=== PATIENT | female | born 1960 | race African-American/Black ===

== ENCOUNTER 2016-10-14 03:09 | Emergency (ER) | payer MEDICAID ==
[~2016-10-14] VITALS: Ht 152.4 cm; Wt 62.6 kg
[2016-10-14 03:35] VITALS: BP 119/75
[2016-10-14 04:13] LABS: Basophils # (auto) 0 uL; Basophils % (auto) 0.3 % (0.0-2.0); CONDITION Y; Eosinophils # (auto) 0.1 uL; Eosinophils % (auto) 1.6 % (0.0-7.0); Hematocrit 45.3 % (36.0-46.0); Hemoglobin 15.3 g/dL (12.2-16.2); Lymphocytes # (auto) 1.3 uL; Lymphocytes % (auto) 14.4 % (10.0-50.0); Mean Corpuscular Hemoglobin 30.1 pg (28.0-32.0); Mean Corpuscular Hgb Conc. 33.7 g/dL (32.0-36.0); Mean Corpuscular Volume 89.5 fL (80.0-100.0); Mean Platelet Volume 8.4 fL (7.4-10.4); Monocytes # (auto) 0.6 uL; Monocytes % (auto) 6.1 % (0.0-12.0); Neutrophils # (auto) 7.1 uL; Neutrophils % (auto) 77.6 % (37.0-80.0); Platelet Count (auto) 172 10^3/uL (140-450); Red Cell Distribution Width 12.2 % (11.6-16.0); White Blood Cell 9.1 10^3/uL (4.4-10.8)
[2016-10-14 04:23] LABS: Anion Gap 7 (5-15); Aspartate Aminotransferase 14 U/L (15-37); BUN/Creatinine Ratio 13.4; Blood Urea Nitrogen 11 mg/dL (7-18); Carbon Dioxide 27 mmol/L (21-32); Chloride 109 mmol/L (98-107); GFR African American 93 mL/min; GFR Non-African American 77 mL/min; Glucose 117 mg/dL (74-106); Potassium 4.1 mmol/L (3.5-5.1); Sodium 143 mmol/L (136-145)
[2016-10-14 04:24] LABS: Albumin 3.9 g/dL (3.4-5.0); Calcium 8.9 mg/dL (8.5-10.1); Magnesium 2.4 mg/dL (1.6-2.6)
[2016-10-14 04:28] LABS: Alkaline Phosphatase 95 U/L (45-117); Bilirubin, Total 0.2 mg/dL (0.2-1.0); Total Protein 7.8 g/dL (6.4-8.2)
== END 2016-10-14 05:28 | disposition left against medical advice (07) ==
LOC: ER 03:15
DX: R42 Dizziness and giddiness (principal); R53.1 Weakness; R11.0 Nausea; Z53.21 Procedure and treatment not carried out due to patient leaving prior to being seen by health care provider
CPT/HCPCS: 36415; 80053; 83735; 84484; 85025

== ENCOUNTER 2017-02-27 10:34 | Emergency (ER) | payer MEDICAID ==
[~2017-02-27] VITALS: Ht 167.6 cm; Wt 65.8 kg
[2017-02-28] MEDS ORDERED: SODIUM CHLORIDE 0.9% 1,000 ML IV ONE (00:45)
[2017-02-28] MEDS ORDERED: NALBUPHINE HCL 10 MG/1ml INJECTION IV ONE (00:45)
[2017-02-28] MEDS ORDERED: cefTRIAXone 1GM/10ml IVPUSH 10 ML IV ONE (00:45)
[2017-02-28] MEDS ORDERED: ONDANSETRON HCL 4 MG/2 ML VIAL IV ONE (00:45)
[2017-02-28 01:45] LABS: Basophils # (auto) 0 uL; Basophils % (auto) 0.4 % (0.0-2.0); Eosinophils # (auto) 0 uL; Eosinophils % (auto) 0.3 % (0.0-7.0); Hematocrit 43.9 % (36.0-46.0); Hemoglobin 14.9 g/dL (12.2-16.2); Lymphocytes # (auto) 1.2 uL; Lymphocytes % (auto) 28.4 % (10.0-50.0); Monocytes # (auto) 0.7 uL; Monocytes % (auto) 17.7 % (0.0-12.0); Neutrophils # (auto) 2.2 uL; Neutrophils % (auto) 53.2 % (37.0-80.0); Nucleated Red Blood Cells % 0.7 %; Platelet Count (auto) 141 10^3/uL (140-450); Red Blood Cells 4.99 10^6/uL (4.0-5.20); Red Cell Distribution Width 12.3 % (11.8-14.3); White Blood Cell 4.2 10^3/uL (4.4-10.8)
[2017-02-28 02:08] LABS: Albumin 3.9 g/dL (3.4-5.0); BUN/Creatinine Ratio 14.1; Calcium 8.9 mg/dL (8.5-10.1); Potassium 3.6 mmol/L (3.5-5.1)
[2017-02-28 03:19] LABS: Bilirubin, Total 0.6 mg/dL (0.2-1.0); Total Protein 8.6 g/dL (6.4-8.2)
[2017-02-28 04:15] VITALS: BP 161/67
== END 2017-02-28 05:13 | disposition home or self-care (01) ==
LOC: ER 10:34 → EDBD 10:34 → ER 02-28 05:13
DX: J06.9 Acute upper respiratory infection, unspecified (principal); E11.9 Type 2 diabetes mellitus without complications; R10.9 Unspecified abdominal pain; R11.2 Nausea with vomiting, unspecified; I10 Essential (primary) hypertension; F17.210 Nicotine dependence, cigarettes, uncomplicated; Z86.73 Personal history of transient ischemic attack (TIA), and cerebral infarction without residual deficits
CPT/HCPCS: 36415; 74176; 80053; 85025; 96361; 96374; 96375; 99285; J2300; J2405; J7030

== ENCOUNTER 2017-10-18 09:41 | Emergency (ER) | payer MEDICAID ==
[~2017-10-18] VITALS: Ht 154.9 cm; Wt 77.1 kg
[2017-10-18 11:09] LABS: Basophils # (auto) 0 uL; Basophils % (auto) 0.1 % (0.0-2.0); Eosinophils # (auto) 0.1 uL; Eosinophils % (auto) 1.6 % (0.0-7.0); Hematocrit 40.7 % (36.0-46.0); Hemoglobin 13.8 g/dL (12.2-16.2); Lymphocytes % (auto) 15.8 % (10.0-50.0); Mean Corpuscular Hemoglobin 29.8 pg (28.0-32.0); Mean Corpuscular Hgb Conc. 33.9 g/dL (32.0-36.0); Mean Corpuscular Volume 87.9 fL (80.0-100.0); Monocytes # (auto) 0.4 uL; Monocytes % (auto) 6.7 % (0.0-12.0); Neutrophils # (auto) 4.9 uL; Neutrophils % (auto) 75.8 % (37.0-80.0); Nucleated Red Blood Cells % 0.1 %; Platelet Count (auto) 150 10^3/uL (140-450); Red Blood Cells 4.63 10^6/uL (4.0-5.20); Red Cell Distribution Width 12.5 % (11.8-14.3); White Blood Cell 6.5 10^3/uL (4.4-10.8)
[2017-10-18 11:29] LABS: Alanine Aminotransferase 24 U/L (13-56); Albumin 3.5 g/dL (3.4-5.0); Alkaline Phosphatase 89 U/L (45-117); Anion Gap 9 (5-15); Aspartate Aminotransferase 12 U/L (15-37); BUN/Creatinine Ratio 7.6; Bilirubin, Total 0.2 mg/dL (0.2-1.0); Blood Urea Nitrogen 6 mg/dL (7-18); Calcium 8.2 mg/dL (8.5-10.1); Carbon Dioxide 23 mmol/L (21-32); Chloride 108 mmol/L (98-107); GFR African American 96 mL/min; GFR Non-African American 80 mL/min; Glucose 131 mg/dL (74-106); Magnesium 2.2 mg/dL (1.6-2.6); Potassium 3.8 mmol/L (3.5-5.1); Sodium 140 mmol/L (136-145); Total Protein 7.6 g/dL (6.4-8.2)
[2017-10-18 14:30] VITALS: BP 156/86
== END 2017-10-18 15:06 | disposition home or self-care (01) ==
LOC: EDBD 09:41 → ER 09:41
DX: G44.209 Tension-type headache, unspecified, not intractable (principal); E11.9 Type 2 diabetes mellitus without complications; K21.9 Gastro-esophageal reflux disease without esophagitis; I10 Essential (primary) hypertension; F17.210 Nicotine dependence, cigarettes, uncomplicated; F12.10 Cannabis abuse, uncomplicated; Z86.73 Personal history of transient ischemic attack (TIA), and cerebral infarction without residual deficits; Z88.0 Allergy status to penicillin
CPT/HCPCS: 36415; 70450; 80053; 83735; 84484; 85025; 93005

== ENCOUNTER → 2019-05-17 | Emergency (ER) | payer MEDICAID ==
[~2019-05-17] VITALS: Ht 152.4 cm; Wt 80.3 kg
[~2019-05-17] MED LIST: InsuLIN REG 1unit/0.01ml Soln (100units/ml) IV ONE; MORPHINE SULFATE 4 MG/ML SYR/VIAL IV ONE; ONDANSETRON HCL 4 MG/2 ML VIAL IV ONE; SODIUM CHLORIDE 0.9% 1,000 ML IV ONE
[2019-05-17 21:04] LABS: Basophils # (auto) 0 10 ^3/uL (0-0.2); Basophils % (auto) 0.2 % (0.0-2.0); Eosinophils # (auto) 0.1 10 ^3/uL (0-0.8); Eosinophils % (auto) 1.5 % (0.0-7.0); Hematocrit 44.6 % (36.0-46.0); Hemoglobin 15.1 g/dL (12.2-16.2); Lymphocytes # (auto) 1.8 10 ^3/uL (0.4-5.4); Mean Corpuscular Hgb Conc. 33.8 g/dL (32.0-36.0); Mean Corpuscular Volume 85.9 fL (80.0-100.0); Monocytes # (auto) 0.6 10 ^3/uL (0-1.3); Neutrophils # (auto) 5.3 10 ^3/uL (1.6-8.6); Neutrophils % (auto) 67.3 % (37.0-80.0); Nucleated Red Blood Cells % 0.1 %; Platelet Count (auto) 198 10^3/uL (140-450); Red Blood Cells 5.19 10^6/uL (4.0-5.20); Red Cell Distribution Width 12.4 % (11.8-14.3); White Blood Cell 7.8 10^3/uL (4.4-10.8)
[2019-05-17 21:21] LABS: Albumin 4.1 g/dL (3.4-5.0); Anion Gap 8 (5-15); Aspartate Aminotransferase 22 U/L (15-37); BUN/Creatinine Ratio 14.9; Blood Urea Nitrogen 14 mg/dL (7-18); Calcium 9.6 mg/dL (8.5-10.1); Carbon Dioxide 27 mmol/L (21-32); Chloride 99 mmol/L (98-107); GFR African American 78 mL/min; GFR Non-African American 65 mL/min; Potassium 4.1 mmol/L (3.5-5.1); Sodium 134 mmol/L (136-145)
[2019-05-17 21:26] LABS: Alanine Aminotransferase 49 U/L (13-56); Alkaline Phosphatase 127 U/L (45-117); Bilirubin, Total 0.5 mg/dL (0.2-1.0); Total Protein 8.7 g/dL (6.4-8.2)
[2019-05-17 21:31] LABS: Glucose 454 mg/dL (74-106)
[2019-05-17 22:40] LABS: Urine Bacteria NONE SEEN /hpf (None Seen); Urine Blood Negative /uL (Negative); Urine Mucus FEW (None Seen); Urine Specific Gravity 1.014 (1.001-1.035); Urine WBC None Seen /hpf (0 - 5)
[2019-05-17 23:13] LABS: Alcohol, Urine < 3.0 mg/dL (0-5); Amphetamine Screen, Urine NEGATIVE (NEGATIVE); Barbiturate Scree,Urine NEGATIVE (NEGATIVE); Benzodiazephine Screen, Urine NEGATIVE (NEGATIVE); Cannabinoid Screen, Urine NEGATIVE (NEGATIVE); Cocaine Screen, Urine NEGATIVE (NEGATIVE); Opiate Scree,Urine NEGATIVE (NEGATIVE); Phencyclidine Screen, Urine NEGATIVE (NEGATIVE)
[2019-05-18 01:00] VITALS: BP 145/75
== END | disposition home or self-care (01) ==
LOC: ER 19:45
DX: S16.1XXA Strain of muscle, fascia and tendon at neck level, initial encounter (principal); E11.65 Type 2 diabetes mellitus with hyperglycemia; R10.9 Unspecified abdominal pain; K21.9 Gastro-esophageal reflux disease without esophagitis; I10 Essential (primary) hypertension; Z88.0 Allergy status to penicillin; Z86.73 Personal history of transient ischemic attack (TIA), and cerebral infarction without residual deficits; X58.XXXA Exposure to other specified factors, initial encounter; Y93.89 Activity, other specified; Y92.89 Other specified places as the place of occurrence of the external cause; Y99.8 Other external cause status
CPT/HCPCS: 36415; 70490; 74176; 80053; 80307; 81001; 82010; 82962; 84484; 85025; 96361; 96374; 96375; 96376; 99285; J1815; J2270; J2405; J7030

== ENCOUNTER 2021-04-14 16:07 | Emergency (ER) | payer MEDICAID ==
[~2021-04-14] VITALS: Ht 152.4 cm; Wt 90.7 kg
[2021-04-14] MEDS ORDERED: MORPHINE SULFATE 4 MG/ML SYR/VIAL IV ONE (16:30)
[2021-04-14] MEDS ORDERED: ONDANSETRON HCL 4 MG/2 ML VIAL IV ONE (16:30)
[2021-04-14 17:45] LABS: Basophils # (auto) 0.2 10 ^3/uL (0-0.2); Basophils % (auto) 3.4 % (0.0-2.0); Eosinophils # (auto) 0.2 10 ^3/uL (0-0.8); Eosinophils % (auto) 3.5 % (0.0-7.0); Hematocrit 42.8 % (36.0-46.0); Hemoglobin 14.3 g/dL (12.2-16.2); Lymphocytes # (auto) 1.2 10 ^3/uL (0.4-5.4); Lymphocytes % (auto) 19.1 % (10.0-50.0); Mean Corpuscular Hemoglobin 28.7 pg (28.0-32.0); Mean Corpuscular Hgb Conc. 33.6 g/dL (32.0-36.0); Mean Corpuscular Volume 85.4 fL (80.0-100.0); Monocytes # (auto) 0.4 10 ^3/uL (0-1.3); Monocytes % (auto) 5.5 % (0.0-12.0); Neutrophils # (auto) 4.5 10 ^3/uL (1.6-8.6); Neutrophils % (auto) 68.5 % (37.0-80.0); Nucleated Red Blood Cells % 0.1 %; Red Blood Cells 5.01 10^6/uL (4.0-5.20); Red Cell Distribution Width 12.7 % (11.8-14.3); White Blood Cell 6.5 10^3/uL (4.4-10.8)
[2021-04-14 18:05] LABS: Albumin 3.8 g/dL (3.4-5.0); Magnesium 2.4 mg/dL (1.6-2.6); Potassium 4.2 mmol/L (3.5-5.1)
[2021-04-14 18:07] LABS: Bilirubin, Total 0.2 mg/dL (0.2-1.0); Total Protein 7.7 g/dL (6.4-8.2)
[2021-04-14 18:08] LABS: INR 0.94 (0.9-1.15); Partial Thromboplastin Time 29.5 sec (23.6-33.0)
[2021-04-14 18:42] LABS: BUN/Creatinine Ratio 15.4
[2021-04-14] MEDS ORDERED: InsuLIN REG 1unit/0.01ml Soln (100units/ml) IV ONE (19:00)
[2021-04-14] MEDS ORDERED: SODIUM CHLORIDE 0.9% 1,000 ML IV ONE (19:00)
[2021-04-15 01:12] VITALS: BP 122/61
== END 2021-04-15 02:31 | disposition home or self-care (01) ==
LOC: ER 16:07
DX: R10.11 Right upper quadrant pain (principal); R10.31 Right lower quadrant pain; E11.65 Type 2 diabetes mellitus with hyperglycemia; K21.9 Gastro-esophageal reflux disease without esophagitis; I10 Essential (primary) hypertension; Z86.73 Personal history of transient ischemic attack (TIA), and cerebral infarction without residual deficits; Z88.0 Allergy status to penicillin
CPT/HCPCS: 36415; 74176; 80053; 82140; 82150; 82962; 83690; 83735; 85025; 85610; 85730; 93005; 96361; 96374; 96375; 99285; J1815; J2270; J2405; J7030

== ENCOUNTER 2024-09-05 16:03 | Inpatient (IN) | payer MEDICAID ==
[~2024-09-05] VITALS: Ht 152.4 cm; Wt 98.0 kg
[2024-09-05] MEDS: SODIUM CHLORIDE 0.9% 1,000 ML IV ONE (00:23)
[2024-09-05] MEDS: POTASSIUM CHL 20MEQ/100ML 100 ML IV SCH (00:23)
[~2024-09-05 16:03] MED LIST changes: -InsuLIN REG 1unit/0.01ml Soln (100units/ml) IV ONE; +METH-1182 PO; -MORPHINE SULFATE 4 MG/ML SYR/VIAL IV ONE; +NAPR-746 PO; -ONDANSETRON HCL 4 MG/2 ML VIAL IV ONE; -SODIUM CHLORIDE 0.9% 1,000 ML IV ONE
[2024-09-05] MEDS: PANTOPRAZOLE 40 MG/10 ML VIAL INJ IV ONE ×2 (16:50→22:59)
[2024-09-05] MEDS: SODIUM CHLORIDE 0.9% 2,000 ML IV ONE (16:50)
[2024-09-05] MEDS: ONDANSETRON HCL 4 MG/2 ML VIAL IV ONE ×3 (16:51→22:59)
[2024-09-05] MEDS: MORPHINE SULFATE INJ 2 MG/ml SYRG IV ONE (16:52)
[2024-09-05 16:56] VITALS: PULSE 130; RESP 17; O2SAT 98
--- NOTE | 2024-09-05 17:53 | DVH ---
CT HEAD WITHOUT CONTRAST Indication: weakness EXAM DATE: 09/05/2024 05:27 PM COMPARISON: None TECHNIQUE: CT of the head without intravenous contrast. RADIATION DOSE: CTDIvol: 54 mGy, DLP: 164 mGy*cm FINDINGS: There is no intracranial hemorrhage. There is no extra-axial fluid, mass, mass effect or midline shif t. The ventricles are midline and normal in size. Basilar cisterns are patent. There are mild periven tricular and subcortical white matter chronic microvascular ischemic changes. Old bilateral basal mercedes glia lacunar infarcts. The paranasal sinuses and mastoids are well-pneumatized. Imaged portion of the orbits are unremarkabl e. IMPRESSION: No intracranial hemorrhage or mass effect. Mild chronic microvascular ischemic changes.
--- NOTE | 2024-09-05 17:56 | DVH ---
CHEST RADIOGRAPH Indication: weakness Technique: Single frontal view of the chest was obtained Comparison: None FINDINGS: The cardiac silhouette is unremarkable. The lungs demonstrate no pulmonary airspace consolidation. Bi lateral interstitial airspace opacities The pulmonary vasculature is prominent. There is no pleural e ffusion.. There is no pneumothorax. Cervical fusion hardware. Aortic atherosclerotic disease. IMPRESSION: Pulmonary vasculature congestion. Interstitial airspace opacities which could represent sequela of pulmonary edema, atypical infection, chronic lung changes/disease.
[2024-09-05 18:22] LABS: Hematocrit 46.7 % (36.0-46.0); Hemoglobin 16.2 g/dL (12.2-16.2); Mean Corpuscular Hemoglobin 28.9 pg (28.0-32.0); Mean Corpuscular Volume 83.0 fL (80.0-100.0); Nucleated Red Blood Cells % 0.1 %
[2024-09-05 18:26] LABS: Chloride 99 mmol/L (98-107); Sodium 140 mmol/L (136-145)
[2024-09-05 18:27] LABS: Anion Gap 15 (5-15); Calcium 9.7 mg/dL (8.7-10.4); Carbon Dioxide 26 mmol/L (20-31)
[2024-09-05 18:32] LABS: BUN/Creatinine Ratio 23.8 (10.0-20.0)
[2024-09-05 18:33] LABS: Blood Urea Nitrogen 36 mg/dL (9-23); Glucose 199 mg/dL (74-106); Potassium 3.1 mmol/L (3.5-5.1)
[2024-09-05] MEDS: MORPHINE SULFATE 4 MG/ML SYR/VIAL IV ONE (19:15)
[2024-09-05 19:30] VITALS: PULSE 122; RESP 17; O2SAT 96
[2024-09-05] MEDS: IOHEXOL 300 MG/ML 100ML BOTTLE IJ ONE (20:49)
--- NOTE | 2024-09-05 21:38 | DVH ---
Exam: CT CT AB PEL WITH IV CON ONLY History: hematemasis Comparison Study: None TECHNIQUE: A digital pole peeler image was obtained. During the uneventful, intravenous administration of c ontrast material, multislice data acquisition was obtained through the abdomen and pelvis. The data s et was subsequently reconstructed into multiplanar reformats. RADIATION DOSE: CTDI vol 10.29 mGy. DLP 606.89 mGy.cm Findings: Liver: Unremarkable. Spleen: Unremarkable. Pancreas: The pancreatic duct is dilated measuring up to 4 mm. Gallbladder: Unremarkable. Adrenals: Unremarkable Kidneys: Bilateral renal cysts. No hydronephrosis. Pelvic Viscera: Unremarkable. Vasculature: Moderate aortoiliac atherosclerosis. Retroperitoneum: Unremarkable. Bowel: No bowel obstruction. The appendix is normal. Musculoskeletal: Unremarkable. Soft tissues: Unremarkable. Lungs: Dependent atelectatic changes. Impression: 1. No acute abdominopelvic abnormality identified. 2. Mild dilation of the pancreatic duct. Comparison with any prior outside imaging would be helpful i n assessing acuity and interval change. In the absence of prior imaging, a nonemergent follow-up MRI is suggested in further assessment. 3. Additional findings as detailed.
--- NOTE | 2024-09-05 22:47 | DVHHP2 ---
History of Present Illness History of Present Illness Patient is 64 years old female with past medical history of hypertension, diabetes mellitus type 2, CVA, cirrhosis of liver, GERD came with a complaint of intractable nausea and vomiting. Patient was not fully cooperative during history taking and physical examination. Information was gathered from chart reviewing and from talking to the patient. Patient reported she has been having nausea and vomiting started on September 02, 2024, vomited-so many times, could not give exact number, vomiting was associated with blood. Patient also endorsed stomach gradual distention,did not mentioned for how long. On further inquiry patient also reported having bilateral chest pain but did not give detailed account. Patient is also feeling generalized weakness. Initial lab workup revealed neutrophil 81%%, potassium 3.1, serum creatinine 1.51, BUN 36, total bilirubin 0.4, AST 59, ALT 29, ammonia< 10, troponin I 39, BNP 110, UDS positive for cannabinoids, benzodiazepine, opiates. Urinalysis negative for UTI. Urinary creatinine 137.58, urine protein creatinine ratio 2.97, urine sodium 78. chest x-ray- pulmonary vascular congestion. CT head mild chronic ischemic changes. CT abdomen pelvis revealed mildly dilated pancreatic duct 4 mm. Bilateral renal cyst. Ultrasound of the liver revealed-Increased echogenicity of the liver which may be referable to hepatic steatosis or intrinsic hepatocellular disease. Nodular hepatic contour raises the possibility of cirrhosis. Past Medical History hypertension, diabetes mellitus type 2, CVA, cirrhosis of liver, GERD Past Surgical History Surgery with the spine, neck and throat Past Social History Ex-smoker, smokes marijuana, ex alcoholic, lives with caregiver Review of Systems Review of Systems Details of the other system could not be obtained due to patient noncooperation with the history taking and physical Allergies: Coded Allergies: Penicillins (Verified Allergy, Unknown, 10/15/15) Medications Current Medications Medications Dose Ordered Sig/Jonathan Route Start Time Stop Time Status Last Admin Dose Admin Ceftriaxone Sodium/Dextrose 50 ml @ 50 mls/hr DAILY IV 09/06/24 10:00 UNV Ondansetron HCl 4 mg Q4HPRN PRN IV 09/05/24 22:45 UNV Exam Vital Signs Vital Signs Date Time Temp Pulse Resp B/P (MAP) Pulse Ox O2 Delivery O2 Flow Rate FiO2 09/05/24 22:02 105 22 130/66 (87) 99 09/05/24 19:30 Room Air* 0 21 7/9/25 19:30 98.7 98.7 Exam General examination- patient agitated, not cooperative HEENT- PEERLA, no acute nasal discharge Cardiovascular- S1-S2 audible, rate and rhythm regular, no murmur Respiratory- CTAB, no wheeze or rhonchi Gastrointestinal-abdominal tenderness++, bowel sound+. Nondistended Musculoskeletal-no acute joint swelling or tenderness or redness Lower extremity- no leg edema Neurological-details of the cranial examination could not be done with the patient's noncooperation Labs/Xrays Labs Test 09/05/24 20:53 09/05/24 18:53 09/05/24 18:00 Range/Units Troponin I High Sensitivity 49 *H </=34 ng/L White Blood Count 8.7 4.4-10.8 10^3/uL Red Blood Count 5.62 H 4.0-5.20 10^6/uL Hemoglobin 16.2 12.2-16.2 g/dL Hematocrit 46.7 H 36.0-46.0 % Mean Corpuscular Volume 83.0 80.0-100.0 fL Mean Corpuscular Hemoglobin 28.9 28.0-32.0 pg Mean Corpuscular Hemoglobin Concent 34.8 32.0-36.0 g/dL Red Cell Distribution Width 12.7 11.8-14.3 % Platelet Count 191 140-450 10^3/uL Mean Platelet Volume 8.4 6.9-10.8 fL Neutrophils (%) (Auto) 81.7 H 37.0-80.0 % Lymphocytes (%) (Auto) 7.0 L 10.0-50.0 % Monocytes (%) (Auto) 11.3 0.0-12.0 % Eosinophils (%) (Auto) 0.0 0.0-7.0 % Basophils (%) (Auto) 0.0 0.0-2.0 % Neutrophils # (Auto) 7.1 1.6-8.6 10 ^3/uL Lymphocytes # (Auto) 0.6 0.4-5.4 10 ^3/uL Monocytes # (Auto) 1.0 0-1.3 10 ^3/uL Eosinophils # (Auto) 0 0-0.8 10 ^3/uL Basophils # (Auto) 0 0-0.2 10 ^3/uL Nucleated Red Blood Cells 0.1 % Sodium Level 140 136-145 mmol/L Potassium Level 3.1 L 3.5-5.1 mmol/L Chloride Level 99 98-107 mmol/L Carbon Dioxide Level 26 20-31 mmol/L Anion Gap 15 5-15 Blood Urea Nitrogen 36 H 9-23 mg/dL Creatinine 1.51 H 0.550-1.02 mg/dL Glomerular Filtration Rate Calc 38 >90 mL/min BUN/Creatinine Ratio 23.8 H 10.0-20.0 Serum Glucose 199 H 74-106 mg/dL Calcium Level 9.7 8.7-10.4 mg/dL B-Type Natriuretic Peptide 110.57 0-100 pg/mL SEPSIS Sepsis Screen Date sepsis recognized/suspect: Sep 05, 2024 Time Sepsis recognized/suspect: 1929 Recent Procedure: No On Antibiotic Therapy: No Respiratory Rate >20: No Heart Rate >90: No Temp<36 C (96.8 F) or >38.3 C: No SBP <90 or MAP <65 mmHG: No New Acute Mental Status Change: No Is the patient on CPAP, BIPAP,: No Physician Orders Electrocardigram (09/05/24 16:14) Urinalysis (09/05/24 17:22) Chest Portable (09/05/24 17:22) Head Without Contrast (09/05/24 17:22) Ct Ab Pel With Iv Con Only (09/05/24 17:51) Admit (09/05/24 22:36) Code Status (09/05/24 22:36) Complete Blood Count (09/06/24 04:00) Comprehensive Metabolic Panel (09/06/24 04:00) Npo (Nothing By Mouth) Diet (09/06/24 Breakfast) Stat Ekg For Chest Pain (09/05/24 22:36) Notify Md Of Changes From Base (09/05/24 22:36) Crozer For 24 Hours (09/05/24 22:36) Sodium Chloride 0.9% (09/05/24 22:45) Sodium Chloride 0.9% (09/05/24 22:45) Pantoprazole (Protonix) (09/05/24 22:45) Pantoprazole 40mg/50ml Ns Ae (Protonix) (09/05/24 22:45) 18g [place] (09/05/24 ) Type And Screen (09/05/24 22:38) Hepatic Panel (09/05/24 22:38) Acute Hepatitis Panel (09/05/24 22:38) Thyroid Stimulating Hormone (09/05/24 22:38) PTPTT (09/05/24 22:38) Ceftriaxone 2gm/50ml D5w (Rocephin 2gm/5 (09/05/24 22:45) Ceftriaxone 2gm/50ml D5w (Rocephin 2gm/5 (09/06/24 10:00) Drug Screen (09/05/24 22:42) Ondansetron Hcl (Zofran) (09/05/24 22:45) Ondansetron Hcl (Zofran) (09/05/24 22:45) Electrocardigram (09/05/24 22:42) Electrocardigram (09/05/24 23:42) * Gi Dvh Radial Router Operator (09/05/24 22:44) * Cardiology Consult (09/05/24 22:45) Blood Alcohol (09/05/24 20:53) Vital Signs Date Time Temp Pulse Resp B/P (MAP) Pulse Ox O2 Delivery O2 Flow Rate FiO2 09/05/24 22:02 105 22 130/66 (87) 99 09/05/24 20:00 110 09/05/24 19:30 122 17 96 Room Air* 0 21 09/05/24 19:30 98.7 121 17 131/81 (98) 96 98.7 09/05/24 19:15 107 20 177/99 09/05/24 18:00 108 19 194/83 (120) 97 09/05/24 16:56 130 17 98 Room Air* 0 21 09/05/24 16:56 98.0 130 17 192/113 (139) 98 98.0 09/05/24 16:52 120 26 192/113 09/05/24 16:14 99.4 124 17 103/68 (80) 97 99.4 09/05/24 16:09 118 Laboratory Tests Test 09/05/24 18:00 White Blood Count 8.7 10^3/uL (4.4-10.8) Medications Medications Dose Ordered Sig/Jonathan Route Start Time Stop Time Status Last Admin Dose Admin Morphine Sulfate 2 mg ONCE ONCE IV 09/05/24 16:30 09/05/24 16:31 DC 09/05/24 16:52 2 MG Morphine Sulfate 4 mg ONCE ONCE IV 09/05/24 18:30 09/05/24 18:40 DC 09/05/24 19:15 4 MG Ondansetron HCl 4 mg ONCE ONCE IV 09/05/24 16:30 09/05/24 16:31 DC 09/05/24 16:51 4 MG Ondansetron HCl 4 mg ONCE ONCE IV 09/05/24 18:30 09/05/24 18:40 DC 09/05/24 19:16 4 MG Pantoprazole Sodium 40 mg ONCE ONCE IV 09/05/24 16:30 09/05/24 16:31 DC 09/05/24 16:50 40 MG Sodium Chloride 2,000 ml @ 1,000 mls/hr Q2H ONCE IV 09/05/24 16:30 09/05/24 18:29 DC 09/05/24 16:50 1,000 MLS/HR Assessment/Plan Assessment/Plan Assessment and plan #Upper GI bleeding -continue pantoprazole drip as prescribed -continue IV normal saline as prescribed -continue ceftriaxone 1 g IV daily -pending gastroenterology consult -Monitor H&H -ordered blood typing -intake output #Intractable nausea and vomiting -continue Zofran 4 mg p.r.n. as prescribed -continue IV normal saline as prescribed #KARLA likely due to VMN FeNa- .6% -continue IV normal saline as prescribed #Acute chest pain Rule out acute coronary syndrom/PNA - EKG sinus rhythm -troponin I -39> 48 -pending cardiology consult -pending echo 2D #NSTEMI likely due to demand led ischemia -- EKG sinus rhythm -troponin I -39> 48 -pending cardiology consult -pending echo 2D #SIRS- Continue IV fluid as prescribed -continue pantoprazole drip as prescribed -monitor vitals # hypokalemia -supplemented -monitor CMP #Cirrhosis of liver -Ultrasound of the liver revealed-Increased echogenicity of the liver which may be referable to hepatic steatosis or intrinsic hepatocellular disease. Nodular hepatic contour raises the possibility of cirrhosis -Ammonia<10 -INR-1.08 -avoid constipation and hepatotoxic drugs -pending GI consult #Hypertension -monitor vitals #Diabetes mellitus type 2 with the hyperglycemia -insulin Lantus 10 units q.a.m. -continue insulin sliding scale mild as prescribed # substance abuse -S positive for marijuana, benzodiazepine, opiates -patient was counseled about the effect of substance abuse on health PCP- Sarahi López Diet -NPO Goals of care, Code status Full code ; discussed with >15 minutes PUD prophylaxis: Pantoprazole DVT prophylaxis: SCD Plan discussed with Dr. Pyle , nursing staff, Total time spent on patient evaluation, chart review, assessment and plan, discussion discussion >35 minutes Plan discussed with: Patient, Other (Partner, RN ) My Orders Orders - ORTIZ PALMER RESIDENT Procedure Category Date Status Time Admit ADMIT 09/05/24 Transmitted 22:36 Code Status CODE 09/05/24 Transmitted 22:36 Complete Blood Count LAB 09/06/24 Verified 04:00 Comprehensive LAB 09/06/24 Verified Metabolic Panel 04:00 Npo (Nothing By DIET 09/06/24 Transmitted Mouth) Diet Breakfast Stat Ekg For Chest ZAYNAB 09/05/24 In Process Pain 22:36 Notify Md Of Changes ZAYNAB 09/05/24 In Process From Base 22:36 Crozer For ZAYNAB 09/05/24 In Process 24 Hours 22:36 Sodium Chloride 0.9% PHA 09/05/24 Logged 22:45 Sodium Chloride 0.9% PHA 09/05/24 Logged 22:45 Pantoprazole PHA 09/05/24 Logged (Protonix) 22:45 Pantoprazole PHA 09/05/24 Logged 40mg/50ml Ns Ae 22:45 18g [place] ED NURSING 09/05/24 Transmitted Type And Screen BBK 09/05/24 Logged 22:38 Hepatic Panel LAB 09/05/24 In Process 22:38 Acute Hepatitis Panel LAB 09/05/24 In Process 22:38 Thyroid Stimulating LAB 09/05/24 In Process Hormone 22:38 PTPTT LAB 09/05/24 In Process 22:38 Ceftriaxone 2gm/50ml PHA 09/05/24 Logged D5w (Rocephin 2gm/5 22:45 Ceftriaxone 2gm/50ml PHA 09/06/24 Logged D5w (Rocephin 2gm/5 10:00 Drug Screen LAB 09/05/24 Logged 22:42 Ondansetron Hcl PHA 09/05/24 Logged (Zofran) 22:45 Ondansetron Hcl PHA 09/05/24 Logged (Zofran) 22:45 Electrocardigram EKG 09/05/24 Logged 22:42 Electrocardigram EKG 09/05/24 Logged 23:42 * Gi Dvh Radial Router Operator CONS 09/05/24 Transmitted 22:44 * Cardiology Consult CONS 09/05/24 Transmitted 22:45 Blood Alcohol LAB 09/05/24 In Process 20:53 Date of Service: Sep 05, 2024 Billing Provider: LUIS ALBERTO PYLE MD Common Visit Codes: 40661-YGBJVME INP/OBS CARE (HIGH) Secondary Visit Codes: [id number] CARE PLAN 30 MINUTES ORTIZ PALMER RESIDENT Sep 05, 2024 22:47
[2024-09-05] MEDS: cefTRIAXone 2GM/50ML D5W 50 ML IV ONE (22:58)
[2024-09-05 23:10] LABS: INR 1.08 (0.9-1.15); Partial Thromboplastin Time 33.0 SEC (24.5-34.5); Prothrombin Time 11.4 sec (9.3-11.8)
[2024-09-05 23:13] LABS: Alanine Aminotransferase 29 U/L (7-40); Albumin 4.1 g/dL (3.2-4.8); Alkaline Phosphatase 73 U/L (46-116); Bilirubin, Direct 0.1 mg/dL (<0.3); Bilirubin, Total 0.4 mg/dL (0.2-1.0); Total Protein 6.4 g/dL (5.7-8.2)
[2024-09-05] MEDS ORDERED: DEXTROSE (50%) 50ML SYRG IV PRN (23:15)
[2024-09-05 23:37] LABS: Lipase 38.0 U/L (12-53); Magnesium 1.9 mg/dL (1.6-2.6)
[2024-09-06] MEDS: PANTOPRAZOLE 40mg/50ML NS AE 50 ML IV ONE (00:06)
[2024-09-06] MEDS: SODIUM CHLORIDE 0.9% 1,000 ML IV ONE (00:07)
[2024-09-06 00:48] LABS: Urine Protein, UAD 3+ (Negative)
[2024-09-06 01:19] LABS: Hematocrit 47.2 % (36.0-46.0); Hemoglobin 16.3 g/dL (12.2-16.2); Mean Corpuscular Hemoglobin 28.6 pg (28.0-32.0); Mean Corpuscular Volume 83.2 fL (80.0-100.0); Nucleated Red Blood Cells % 0.3 %
[2024-09-06 01:33] LABS: Chloride 99 mmol/L (98-107); Sodium 138 mmol/L (136-145)
[2024-09-06 01:34] LABS: Anion Gap 14 (5-15); Calcium 8.9 mg/dL (8.7-10.4); Carbon Dioxide 25 mmol/L (20-31)
[2024-09-06 01:35] LABS: Potassium 3.3 mmol/L (3.5-5.1)
[2024-09-06 01:39] LABS: BUN/Creatinine Ratio 26.8 (10.0-20.0)
[2024-09-06 01:47] LABS: Blood Urea Nitrogen 37 mg/dL (9-23); Glucose 172 mg/dL (74-106)
--- NOTE | 2024-09-06 01:55 | DVH ---
INDICATION: RULE OUT CIRRHOSIS OF LIVER TECHNIQUE: Multiple real-time sonographic images were obtained of the right upper quadrant. COMPARISON: None FINDINGS: The liver demonstrates increased echogenicity without focal mass lesions. The hepatic cont our appears nodular. The flow appears hepatopetal. There is no intrahepatic or extrahepatic ductal di latation. The common duct measures 4 mm. The gallbladder is without evidence of stone or sludge. The gallbladder wall measures 3 mm and is w ithin normal limits. The right kidney measures 10.2 cm. There is a 1.3 cm right renal cyst. No hydronephrosis. The pancreas is not well visualized due to overlying bowel gas. IMPRESSION: 1. Increased echogenicity of the liver which may be referable to hepatic steatosis or intrinsic hepat ocellular disease. Nodular hepatic contour raises the possibility of cirrhosis in the appropriate cli nical setting.
[2024-09-06] MEDS: INSULIN LANTUS (GLARGINE) 1 /0.01ml (100units/ml) SC ONE (02:07)
[2024-09-06 02:26] LABS: Benzodiazephine Screen, Urine Pos (NEGATIVE)
[2024-09-06 02:27] LABS: Opiate Scree,Urine Pos (NEGATIVE)
[2024-09-06 02:59] LABS: Protein, Urine 409.3 mg/dL (1-14)
[2024-09-06 03:00] LABS: Amphetamine Screen, Urine Neg (NEGATIVE); Barbiturate Scree,Urine Neg (NEGATIVE); Cannabinoid Screen, Urine Pos (NEGATIVE); Cocaine Screen, Urine Neg (NEGATIVE); Phencyclidine Screen, Urine Neg (NEGATIVE)
[2024-09-06] MEDS: InsuLIN REG 1unit/0.01ml Soln (100units/ml) SC SCH (06:21)
[2024-09-06] MEDS: ACCU-CHEK COMFORT CURVE STRIP VI SCH (07:01)
[2024-09-06 07:30] VITALS: PULSE 98; RESP 12; O2SAT 98
[2024-09-06] MEDS: SODIUM CHLORIDE 0.9% 1,000 ML IV SCH (09:28)
--- NOTE | 2024-09-06 09:56 | DVHCONRES ---
Date Seen: Sep 06, 2024 Resident Creating Document: CATHERINE BACH RESDIENT History of Present Illness This is a 64-year-old female with past medical history COPD, liver cirrhosis, diabetes type 2, CVA, liver cirrhosis (likely due to alcohol use disorder) GERD, came to the hospital due to nausea and vomiting since since days. Per patient, she has recurrent vomiting with bloody content. She also reports of mild chest pain, shortness of breath, cough and generalized weakness. Chest pain is localized on right-sided, described as stabbing, 7/10, intermittent with no clear exacerbating or relieving factor, reproducible with touch. PMHx: COPD, liver cirrhosis, diabetes type 2, CVA, liver cirrhosis (likely due to alcohol use disorder) GERD Home medication: Ezetimibe, Lantus, atorvastatin, memantine, Farxiga, losartan Allergic history: Penicillins Patient seen and examined at the bedside. Patient is complaining of generalized weakness, denies chest pain at the moment. Allergies: Coded Allergies: Penicillins (Verified Allergy, Unknown, 10/15/15) Home Meds Active Scripts Methocarbamol (Methocarbamol) 750 Mg Tab, 750 MG PO BID, #20 TAB Prov:JENNIFER TIPTON 04/29/23 Naproxen (Naproxen) 500 Mg Tab, 500 MG PO BID, #30 TAB Prov:JENNIFER TIPTON 04/29/23 Current Medications Current Medications Medications (Trade) Dose Ordered Sig/Jonathan Route PRN Reason Start Time Stop Time Status Last Admin Ceftriaxone Sodium/Dextrose 50 ml @ 50 mls/hr DAILY IV 09/06/24 10:00 Ondansetron HCl (Zofran) 4 mg Q4HPRN PRN IV NAUSEA / VOMITING 09/05/24 22:45 Potassium Chloride 100 ml @ 50 mls/hr Q2H IV 09/05/24 23:00 09/06/24 02:59 DC 09/05/24 00:23 Diagnostic Test (Pha) (Accu-Chek Comfort Curve T) 1 strip ACHS 09/06/24 07:00 09/06/24 07:01 Insulin Human Regular (InsuLIN R) ACHS SC 09/06/24 07:00 Dextrose 50 ml UD PRN IV Blood Sugar LESS THAN 60 09/05/24 23:15 Sodium Chloride 1,000 ml @ 75 mls/hr [id number] IV 09/06/24 08:45 09/06/24 09:28 Vital Signs Vital Signs Date Time Temp Pulse Resp B/P (MAP) Pulse Ox O2 Delivery O2 Flow Rate FiO2 09/06/24 08:00 101 09/06/24 07:30 12 98 Room Air* 0 21 09/06/24 07:03 09/05/24 19:30 98.7 98.7 Physical Exam General Appearance: Alert, Oriented X3, Cooperative, No acute distress HEENT: Atraumatic, PERRLA, EOMI, Mucous membrane moist/pink Respiratory: Clear to auscultation, Normal air movement Cardiovascular: Right-sided chest wall tenderness Abdominal: Normal bowel sounds, Soft, No tenderness, No hepatospenomegaly, No masses Extremities: No clubbing, No cyanosis, No edema, Normal pulses, No tenderness/swelling Skin: No rashes, No breakdown, No significant lesion Neuro: Normal gait, Normal speech, Strength at 5/5 X4 ext, Normal tone, Sensation intact, Cranial nerves 3-12 NL, Reflexes 2+ Psych/Mental Status: Mental status NL, Mood NL Labs/Diagnostic Data Labs Test 09/06/24 09:36 09/06/24 01:54 09/06/24 00:10 09/05/24 23:15 Range/Units POC Glucose 149 H 70-106 mg/dl Urine Color Yellow Yellow Urine Clarity Turbid H Clear Urine pH 6.0 5.0-9.0 Urine Specific [place] > 1.050 H 1.001-1.035 Urine Protein 3+ H Negative Urine Ketones 1+ H Negative Urine Blood 3+ H Negative /uL Urine Nitrite Negative Negative Urine Bilirubin Negative Negative Urine Urobilinogen Normal Negative mg/dL Urine Leukocyte Esterase Negative Negative /uL Urine RBC 10 0 - 4 /hpf Urine Microscopic WBC 4 0-5 /HPF Urine Squamous Epithelial Cells Few <5 /hpf Urine Bacteria None seen None Seen /hpf Urine Granular Casts Mod 0 /lpf Urine Mucus Few None Seen Urine Creatinine 137.58 H 30.0-125.0 mg/dL Urine Protein/Creatinine Ratio 2.97 Urine Sodium 78 40-220 mmol/L Urine Glucose Trace Normal mg/dL Urine Total Protein 409.3 H 1-14 mg/dL Urine Opiates Screen Pos NEGATIVE Urine Fentanyl Screen Neg NEGATIVE Urine Barbiturates Screen Neg NEGATIVE Urine Phencyclidine Screen Neg NEGATIVE Urine Amphetamines Screen Neg NEGATIVE Urine Benzodiazepines Screen Pos NEGATIVE Urine Cocaine Screen Neg NEGATIVE Urine Cannabinoids Screen Pos NEGATIVE Eosinophils (%) (Auto) 0.1 0.0-7.0 % Eosinophils # (Auto) 0 0-0.8 10 ^3/uL Basophils # (Auto) 0 0-0.2 10 ^3/uL Nucleated Red Blood Cells 0.3 % Hemoglobin A1c 6.6 H <5.7 % A1C Ammonia < 10 L 11-32 umol/L Vitamin B12 Level 376 211-911 pg/mL Vitamin D 25-Hydroxy 38.1 30.0-100 ng/mL Folic Acid 15.26 >5.38 ng/mL Test 09/05/24 20:53 09/05/24 18:53 09/05/24 18:00 Range/Units Prothrombin Time 11.4 9.3-11.8 sec Prothrombin Time INR 1.08 0.9-1.15 Activated Partial Thromboplast Time 33.0 24.5-34.5 SEC Direct Bilirubin 0.1 <0.3 mg/dL Troponin I High Sensitivity 49 *H </=34 ng/L Plasma/Serum Blood Alcohol < 3.0 <10 mg/dL Thyroid Stimulating Hormone (TSH) 1.65 0.55-4.78 uIU/mL Magnesium Level 1.9 1.6-2.6 mg/dL B-Type Natriuretic Peptide 110.57 0-100 pg/mL Lipase 38 12-53 U/L Beta-Hydroxybutyric Acid 0.516 H < 0.4 mmol/L Assessment Chest pain, noncardiac, likely due to musculoskeletal Bloody vomiting, likely due to liver cirrhosis NSTEMI, likely type 2, due to above Hypertensive emergency Diabetes type 2 Liver cirrhosis GERD * EKGs shows sinus tachycardia with no significant ST or T-wave changes * Trop I is mildly raised, stable, BNP is within normal limits * Revised cardiac risk index (light criteria): 2 Plan/recommendation (case discussed with Dr. Hammond) * Check echocardiogram * Follow up with the GI doctor for bloody vomitus * In context of normal echocardiogram, patient does not need further cardiology workup at the moment * Rest of plan per primary team * Patient is at low risk of cardiovascular event for moderate risk non cardiac surgery Thank you for giving us the opportunity to take care of your patient. Please call back if you have any question/concern. Plan discussed with: Patient, Other (RN) CATHERINE BACH Sep 06, 2024 09:56
[2024-09-06 09:59] LABS: Hematocrit 42.3 % (36.0-46.0); Hemoglobin 14.9 g/dL (12.2-16.2); Mean Corpuscular Hemoglobin 29.4 pg (28.0-32.0); Mean Corpuscular Volume 83.3 fL (80.0-100.0); Nucleated Red Blood Cells % 0.2 %
[2024-09-06 10:00] VITALS: PULSE 90; RESP 14; O2SAT 96
[2024-09-06 10:09] LABS: Alanine Aminotransferase 31 U/L (7-40); Albumin 4.3 g/dL (3.2-4.8); Alkaline Phosphatase 72 U/L (46-116); Anion Gap 9 (5-15); BUN/Creatinine Ratio 20.2 (10.0-20.0); Blood Urea Nitrogen 19 mg/dL (9-23); Calcium 9.2 mg/dL (8.7-10.4); Carbon Dioxide 25 mmol/L (20-31); Chloride 106 mmol/L (98-107); Sodium 140 mmol/L (136-145); Total Protein 6.9 g/dL (5.7-8.2)
[2024-09-06 10:10] LABS: Bilirubin, Total 0.3 mg/dL (0.2-1.0); Glucose 125 mg/dL (74-106); Potassium 3.4 mmol/L (3.5-5.1)
[2024-09-06] MEDS: cefTRIAXone 2GM/50ML D5W 50 ML IV SCH (10:11)
[2024-09-06] MEDS: POTASSIUM CHL 20MEQ/100ML 100 ML IV ONE (10:18)
[2024-09-06] MEDS: ONDANSETRON HCL 4 MG/2 ML VIAL IV PRN ×2 (10:33→21:36)
[2024-09-06] MEDS: PANTOPRAZOLE 40 MG/10 ML VIAL INJ IV ONE (11:22)
--- NOTE | 2024-09-06 13:05 | DVHINCON2 ---
GI Consult Consult Note GI consult note Date of Consultation: 09/06/2024 Chief Complaint: Hematemesis Referring Physician: Dr. Spring H&P: 64-year-old female with past medical history of hypertension, DM, CVA, liver cirrhosis, and GERD presented to ER with complains of nausea and vomiting. Symptoms started four days ago. Patient admits to hematemesis. Also has complains of abdominal pain mostly in the upper abdomen. Last bowel movement 3- 4 days ago. Denies melena or red blood in stool patient admits to having EGD in past but unsure how long ago and unsure about results. Patient UDS results in cannabis benzodiazepine and opiates use. Patient is also being seen by Cardiology pending echocardiogram at this point Past Medical History: hypertension, diabetes mellitus type 2, CVA, cirrhosis of liver, GERD Past Surgical History: spine, neck and throat Social History: Ex-smoker, smokes marijuana, ex alcoholic, lives with caregiver Family History: Noncontributory Review of Systems: As above Physical exam: General: NAD, AAOX3 Chest: lung robles clear to auscultation Heart: RRR, no murmur Abdomen:+ tenderness to palpation, +BS Labs: Labs Test 09/06/24 11:26 09/06/24 09:36 09/06/24 00:10 09/05/24 23:15 Range/Units POC Glucose 108 H 70-106 mg/dl White Blood Count 8.8 4.4-10.8 10^3/uL Red Blood Count 5.08 4.0-5.20 10^6/uL Hemoglobin 14.9 12.2-16.2 g/dL Hematocrit 42.3 # 36.0-46.0 % Mean Corpuscular Volume 83.3 80.0-100.0 fL Mean Corpuscular Hemoglobin 29.4 28.0-32.0 pg Mean Corpuscular Hemoglobin Concent 35.3 32.0-36.0 g/dL Red Cell Distribution Width 12.5 11.8-14.3 % Platelet Count 169 140-450 10^3/uL Mean Platelet Volume 8.1 6.9-10.8 fL Neutrophils (%) (Auto) 82.8 H 37.0-80.0 % Lymphocytes (%) (Auto) 7.1 L 10.0-50.0 % Monocytes (%) (Auto) 9.9 0.0-12.0 % Eosinophils (%) (Auto) 0.1 0.0-7.0 % Basophils (%) (Auto) 0.1 0.0-2.0 % Neutrophils # (Auto) 7.3 1.6-8.6 10 ^3/uL Lymphocytes # (Auto) 0.6 0.4-5.4 10 ^3/uL Monocytes # (Auto) 0.9 0-1.3 10 ^3/uL Eosinophils # (Auto) 0 0-0.8 10 ^3/uL Basophils # (Auto) 0 0-0.2 10 ^3/uL Nucleated Red Blood Cells 0.2 % Sodium Level 140 136-145 mmol/L Potassium Level 3.4 L 3.5-5.1 mmol/L Chloride Level 106 98-107 mmol/L Carbon Dioxide Level 25 20-31 mmol/L Anion Gap 9 5-15 Blood Urea Nitrogen 19 # 9-23 mg/dL Creatinine 0.94 # 0.550-1.02 mg/dL Glomerular Filtration Rate Calc 68 >90 mL/min BUN/Creatinine Ratio 20.2 H 10.0-20.0 Serum Glucose 125 H 74-106 mg/dL Calcium Level 9.2 8.7-10.4 mg/dL Total Bilirubin 0.3 0.2-1.0 mg/dL Aspartate Amino Transferase (AST) 63 H 13-40 U/L Alanine Aminotransferase (ALT) 31 7-40 U/L Alkaline Phosphatase 72 46-116 U/L Total Protein 6.9 5.7-8.2 g/dL Albumin 4.3 3.2-4.8 g/dL Urine Color Yellow Yellow Urine Clarity Turbid H Clear Urine pH 6.0 5.0-9.0 Urine Specific Hubbard > 1.050 H 1.001-1.035 Urine Protein 3+ H Negative Urine Ketones 1+ H Negative Urine Blood 3+ H Negative /uL Urine Nitrite Negative Negative Urine Bilirubin Negative Negative Urine Urobilinogen Normal Negative mg/dL Urine Leukocyte Esterase Negative Negative /uL Urine RBC 10 0 - 4 /hpf Urine Microscopic WBC 4 0-5 /HPF Urine Squamous Epithelial Cells Few <5 /hpf Urine Bacteria None seen None Seen /hpf Urine Granular Casts Mod 0 /lpf Urine Mucus Few None Seen Urine Creatinine 137.58 H 30.0-125.0 mg/dL Urine Protein/Creatinine Ratio 2.97 Urine Sodium 78 40-220 mmol/L Urine Glucose Trace Normal mg/dL Urine Total Protein 409.3 H 1-14 mg/dL Urine Opiates Screen Pos NEGATIVE Urine Fentanyl Screen Neg NEGATIVE Urine Barbiturates Screen Neg NEGATIVE Urine Phencyclidine Screen Neg NEGATIVE Urine Amphetamines Screen Neg NEGATIVE Urine Benzodiazepines Screen Pos NEGATIVE Urine Cocaine Screen Neg NEGATIVE Urine Cannabinoids Screen Pos NEGATIVE Hemoglobin A1c 6.6 H <5.7 % A1C Ammonia < 10 L 11-32 umol/L Vitamin B12 Level 376 211-911 pg/mL Vitamin D 25-Hydroxy 38.1 30.0-100 ng/mL Folic Acid 15.26 >5.38 ng/mL Test 09/05/24 20:53 09/05/24 18:53 09/05/24 18:00 Range/Units Prothrombin Time 11.4 9.3-11.8 sec Prothrombin Time INR 1.08 0.9-1.15 Activated Partial Thromboplast Time 33.0 24.5-34.5 SEC Direct Bilirubin 0.1 <0.3 mg/dL Troponin I High Sensitivity 49 *H </=34 ng/L Plasma/Serum Blood Alcohol < 3.0 <10 mg/dL Thyroid Stimulating Hormone (TSH) 1.65 0.55-4.78 uIU/mL Magnesium Level 1.9 1.6-2.6 mg/dL B-Type Natriuretic Peptide 110.57 0-100 pg/mL Lipase 38 12-53 U/L Beta-Hydroxybutyric Acid 0.516 H < 0.4 mmol/L Imaging: CT abdomen pelvis Impression: 1. No acute abdominopelvic abnormality identified. 2. Mild dilation of the pancreatic duct. Comparison with any prior outside imaging would be helpful in assessing acuity and interval change. In the abse nce of prior imaging, a nonemergent follow-up MRI is suggested in further assessment. 3. Additional findings as detailed. Abdominal ultrasound IMPRESSION: 1. Increased echogenicity of the liver which may be referable to hepatic steatosis or intrinsic hepatocellular disease. Nodular hepatic contour raises the possibility of cirrhosis in the appropriate clinical setting. Assessment: GI bleed Nausea and vomiting NSTEMI Plan: Discussed with Dr. Christine Monitor lab Zofran and Protonix Request for cardiac clearance for possible EGD tomorrow NPO after midnight Discussed plan with patient and RN Thank you for this consult Date of Service: Sep 06, 2024 Billing Provider: ANGELA LINCOLN Common Visit Codes: CONSULT ONLY Consultation Codes: [id number] CONSULT <60MIN ANGELA LINCOLN Sep 06, 2024 13:05
[2024-09-06 15:24] VITALS: PULSE 91; RESP 18; O2SAT 99
[2024-09-06 15:57] VITALS: PULSE 91; RESP 18; O2SAT 99
--- NOTE | 2024-09-06 17:16 | DVHSR ---
APPROVED REPORT EXAM: LIMITED Two-dimensional and M-mode echocardiogram with Doppler and color Doppler. Blood Pressure: 154/75 mmHg INDICATION Chest Pain RISK FACTORS Height: 5' 7", Weight: 165 DIMENSIONS LVDd3.7 (3.8-5.7cm)LA (2D)3.5 (1.9-4.0cm)Aortic Root2.1 (2.0-3.7cm) LVDs2.4 (2.5-4.0cm)LA (MM) (1.9-4.0cm)Aortic Cusp Exc1.3 (1.5-2.0cm) EF (%) 65.0 (55-70%)Rt. Atrium3.4 (1.9-4.0cm)Asc. Aorta cm IVSd1.0 (0.7-1.1cm)RV (D) (1.8-2.4cm) PWd1.0 (0.7-1.1cm) Mitral Valve MitralMitral Stenosis E wave0.70m/sMV Mean GR.mmHg A wave0.90m/sMV Peak GR.mmHg E/A ratio0.82D MVAcm2 Aortic Valve Aortic ValveAortic Stenosis V11.20m/Susana Mean GR.4mmHg V21.40m/Susana Peak GR.8mmHg LVOT Diameter1.7 (1.8-2.4cm)Doppler AVA1.94cm2 Tricuspid Valve TR Velocity2.70m/s [id number] Other Information Quality : Technically LimitedRhythm : Technically limited study due to patient position, patient refusing to turn and moving. Conclusion Technically good study. Sinus rhythm. Concentric LVH. Normal chamber sizes. Left ventricular function is preserved at 60% with normal RV function. Dopplers unremarkable. No pericardial effusion masses or vegetations.
--- NOTE | 2024-09-06 19:14 | DVHPNRES ---
Progress Note Date Seen: Sep 06, 2024 Resident Creating Document: STUART ODOM RESIDENT Has the PT tested + for MRSA If YES, has PT been informed?: No Medical Necessity Reason Pt with a Central, PICC or Fol: No Subjective Review of Systems Patient is a 64 female with prior medical history of hypertension, type 2 diabetes mellitus, CVA in 2021, liver cirrhosis, GERD, COPD, and lupus, who presented to the ED with chief complaint of nausea and vomiting. She states she began to have nausea and innumerable emetic episodes on September 02 and eventually became bloody. Additionally, she refers sharp abdominal pain concentrated in the epigastrium, with an intensity of 9/10, with no radiation, and without aggravating nor relieving factors. Additionally, she states progressive abdominal distention and chest pain, however patient stated that it hurt to talk and she did not wish to elaborate any further. Initial labs show WBCs 8.7, hemoglobin 16.2, hematocrit 46.7, platelets 191, sodium 141, potassium 3.1, serum creatinine 1.51, BUN 36, total bilirubin 0.4, AST 59, ALT 29, ALP 77, ammonia <10, troponins 39, and glucose 199. Urine toxicology screen was positive for opiates, benzodiazepines, and cannabis. Serum alcohol levels were < 3. 12 lead EKG shows sinus tachycardia with no significant ST or T wave changes. Chest Xray showed pulmonary vascular congestion and interstitial airspace opacities which could represent sequela of pulmonary edema , atypical infection, chronic lung changes/disease. Head CT with no intracranial hemorrhage or mass effect. Abdominal CT showed no acute abdominopelvic abnormality identified and mild dilation of the pancreatic duct. Liver ultrasound showed increased echogenicity of the liver which may be referable to the hepatic steatosis or intrinsic hepatocellular disease with nodular contours raising the possibility of cirrhosis. Patient was admitted due to suspicion of upper GI bleeding, patient was placed on IV fluids, pantoprazole IV drip, IV ceftriaxone, IV Zofran for nausea and vomiting, and a GI consult was placed. Additionally, potassium repletion was initiated. On evaluation after admission, patient was still uncooperative. She stated that the pain had improved slightly and rated it a 8/10 pointing mainly to her epigastrium, denied nausea or vomiting. Follow up labs showed WBCs 11.0, Hb 16.3, hematocrit 47.2, platelets 194, sodium 138, potassium 3.3, BUN 37, creatinine 1.38, lipase 38, PT 11.4, INR 108, and APTT 33. Troponins continued to trend up to 48 and 49, for this reason cardiology was consulted. Patient seen at bedside. On evaluation after admission, patient is still uncooperative. She states that the pain had improved slightly and rated it a 8/10 pointing mainly to her epigastrium, denied nausea or vomiting. Follow up labs showed WBCs 11.0, Hb 16.3, hematocrit 47.2, platelets 194, sodium 138, potassium 3.3, BUN 37, creatinine 1.38, lipase 38, PT 11.4, INR 108, and APTT 33. Troponins continued to trend up to 48 and 49, for this reason cardiology was consulted. Echocardiogram shows concentric LVH, normal chamber sizes, and left ventricular function preserved at 60% with normal right ventricular function Per cardiology, patients chest pain is most likely musculoskeletal, troponins are most likely elevated due an NSTEMI due to bloody vomiting. She is considered low risk of cardiovascular event for EGD. Patient was seen by gastroenterology who stated they will plan to take patient to EGD tomorrow. Per nurse, patient was complaining of pain in the evening, given that she is NPO and possible suspicion of dupper GI bleed, 1 dose of morphine was ordered. Review of systems: Constitutional: Denies weight loss, fever and chills. HEENT: Denies changes in vision and hearing. Respiratory: Denies shortness of breath and cough Cardiovascular: Refers chest discomfort, denies palpitations GI: Refers abdominal distention and abdominal pain, denies diarrhea, vomiting : Denies dysuria and urinary frequency. Musculoskeletal: Denies myalgias and joint pain Skin: Denies rash and pruritus. Neurological: denies dizziness headache vision or hearing problems Objective vital signs Vital Sign Date Time Temp Pulse Resp B/P (MAP) Pulse Ox O2 Delivery O2 Flow Rate FiO2 09/06/24 15:57 91 18 99 Room Air* 0 21 09/06/24 11:30 174/73 (106) 09/05/24 19:30 98.7 98.7 Total Intake and Output 09/05/24 09/05/24 09/06/24 15:00 23:00 07:00 Intake Total 1775 ml Balance 1775 ml medications Current Medications Medications Dose Ordered Sig/Jonathan Route Start Time Stop Time Status Last Admin Dose Admin Ceftriaxone Sodium/Dextrose 50 ml @ 50 mls/hr DAILY IV 09/06/24 10:00 09/06/24 10:11 50 MLS/HR Diagnostic Test (Pha) 1 strip ACHS 09/06/24 07:00 09/06/24 17:00 1 STRIP Insulin Human Regular ACHS SC 09/06/24 07:00 Dextrose 50 ml UD PRN IV 09/05/24 23:15 Sodium Chloride 1,000 ml @ 75 mls/hr [id number] IV 09/06/24 08:45 09/06/24 09:28 75 MLS/HR Ondansetron HCl 4 mg Q8HPRN PRN IV 09/06/24 10:45 Pantoprazole Sodium 40 mg BID IV 09/06/24 22:00 Examination General: The patient alert and oriented in person, place, and time. Follows command, but is uncooperative HEENT: Normocephalic, atraumatic, moist mucous membrane Respiratory/pulmonary: Clear lungs bilaterally, vesicular murmurs present in almost all lung robles, no associated crackles or wheezes. Abdomen: Abdomen mildly distended, pain to palpation in epigastrium, no palpable masses. Extremities: Unable to evaluated due to uncooperative patient. Peripheral pulses Unable to evaluate due to uncooperative patient Skin: Unable to evaluate due to uncooperative patient. Neurological: Unable to evaluate due to uncooperative patient laboratory and microbiology Laboratory Tests 09/06/24 09:36 Test 09/06/24 09:36 Range/Units Serum Glucose 125 H 74-106 mg/dL Labs and/or images reviewed: Labs reviewed by me, Image(s) reviewed by me Problem List/Assessment/Plan Problem List/Assessment/Plan Assessment and Plan: Possible upper GI bleed, possibly due to liver cirrhosis -IV fluids -Pantoprazole 40 mg IV -Ceftriaxone IV 1 g -Per gastroenterology patient will be going to EGD tomorrow, currently NPO -Liver US: Increased echogenicity of the liver which may be referable to hepatic steatosis or intrinsic hepatocellular disease. Nodular hepatic contour raises possibility of cirrhosis. Intractable nausea and vomiting, resolved -Zofran 4 mg IV prn -IV fluids KARLA likely due to VMN -IV fluids -Monitor renal function -Avoid nephrotoxic drugs Acute chest pain, likely due to GERD, ACS ruled out -IV Protonix NSTEMI type 2, likely due to bloody vomiting Type 2 diabetes with hyperglycemia, HbA1c: 6.6% -Lantus 10 units -Mild SSI Hypokalemia -IV potassium Marijuana use disorder -Counseled on marijuana use cessation for 18 minutes NPO GI prophylaxis: Protonix 40 mg IV DVT prophylaxis: SCDs due to GI bleed Case discussed with Dr. Dye. Goals of care discussed with patient for 20 minutes. Full code. Plan discussed with: Patient, Other (Nurse) Addendum Addendum Addendum I was physically present for the jacobs portions of the service provided to patient by THE RESIDENT. I have reviewed the documentation, discussed the case with resident and agree with the resident's documentation except as noted. Also the patient's clinical case was discussed with the patient's nurse. This medical document was created using an electronic medical record system with computerized dictation system. Although this document has been carefully reviewed, there might still be some phonetic and typographical errors. These areas are purely typographical due to imperfections of the software programs, and do not reflect any compromise in the patient's medical care. Late signature. Date of Service: Sep 06, 2024 Billing Provider: ORMERO DYE MD Common Visit Codes: [id number] INP/OBS CARE(HIGH) Secondary Visit Codes: [id number] CHNG SMOKING >10MIN (Counseled on marijuana use cessation for 18 minutes), [id number] CARE PLAN 30 MINUTES (20 minutes) STUART ODOM RESIDENT Sep 06, 2024 19:14 ROMERO DYE MD Sep 07, 2024 05:04
[2024-09-06 20:00] VITALS: PULSE 87; PULSE 89; RESP 17; O2SAT 93
[2024-09-06 21:00] VITALS: BP 162/69; PULSE 89; RESP 17; TEMP 97.7; O2SAT 93
[2024-09-06] MEDS: PANTOPRAZOLE 40 MG/10 ML VIAL INJ IV SCH (21:36)
[2024-09-06] MEDS: MORPHINE SULFATE INJ 2 MG/ml SYRG IV ONE (21:37)
[2024-09-07] VITALS (9 sets, daily range): BP systolic 137–148; BP diastolic 68–93; PULSE 68–94; RESP 17–21; TEMP 97.6–98.8; O2SAT 95–100
--- NOTE | 2024-09-07 07:10 | ECG ---
[facility] Test Date: 2024-09-05 Test Time: 16:09:17 Pat Name: J CARLOS RANKIN Department: ED Room: 0245T B Gender: F Survey Chief: YARI : 1960 Requested By: ASIA BROOKS Order Number: [id number] Reading MD: Ab Hammond Measurements Intervals [place] Rate: 118 P: 62 MD: 99 QRS: 30 QRSD: 84 T: 26 QT: 342 QTc: 480 Interpretive Statements Sinus tachycardia Atrial premature complex Probable anteroseptal infarct, old Electronically Signed On 09-10-2024 13:27:32 PDT by Ab Hammond Please click the below link to view image of tracing.
[2024-09-07 08:07] LABS: Chloride 104 mmol/L (98-107); Potassium 3.6 mmol/L (3.5-5.1); Sodium 140 mmol/L (136-145)
[2024-09-07 08:08] LABS: Anion Gap 10 (5-15); Calcium 9.4 mg/dL (8.7-10.4); Carbon Dioxide 26 mmol/L (20-31)
[2024-09-07 08:13] LABS: BUN/Creatinine Ratio 16.0 (10.0-20.0); Blood Urea Nitrogen 16 mg/dL (9-23); Glucose 87 mg/dL (74-106)
[2024-09-07 08:19] LABS: Hematocrit 41.2 % (36.0-46.0); Hemoglobin 14.1 g/dL (12.2-16.2); Mean Corpuscular Hemoglobin 28.9 pg (28.0-32.0); Mean Corpuscular Volume 84.2 fL (80.0-100.0); Nucleated Red Blood Cells % 0.1 %
[2024-09-07 10:06] LABS: Hepatitis B Surface Antigen Negative (Negative)
[2024-09-07 10:31] LABS: Hepatitis C Antibody Positive (Negative)
[2024-09-07] MEDS: MORPHINE SULFATE INJ 2 MG/ml SYRG IV PRN (13:48)
[2024-09-07] MEDS ORDERED: SODIUM CHLORIDE LOCK 10 ML ONE (14:47)
[2024-09-07] MEDS: MIDAZOLAM HCL 5 MG/ML-1ML VIAL ONE (15:02)
[2024-09-07] MEDS: fentaNYL CITRATE 100 MCG/2 ML VL ONE (15:02)
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
[2024-09-07] MEDS: diphenhdrAMINE HCL 50 MG/1 ML VL ONE (15:57)
[2024-09-07] MEDS: LIDOCAINE VISCOUS 2% 15ML UD ONE (15:57)
--- NOTE | 2024-09-07 16:12 | DVHOP2 ---
Operative Report DATE OF OPERATION: 09/07/24 PROCEDURE: Upper Endoscopy with biopsy PREOPERATIVE INDICATION: The patient is a 64 -year-old female undergoing endoscopy for nausea vomiting and epigastric pain POSTOPERATIVE DIAGNOSES: 1. 0.5-1 cm sliding-type hiatal hernia with slightly irregular squamocolumnar junction 2. Minimal gastroduodenitis otherwise normal examination of the 2nd and 3rd part of the duodenum PROCEDURE PERFORMED BY: Tripp Christine GI NURSE: Amy SCOPE: Olympus videoendoscope. ASA CLASS: 3. PREOPERATIVE MEDICATIONS: Versed 3 mg, Fentanyl 75 mcg, Benadryl 50 mg I administered moderate sedation throughout this _10_ minutes procedure. An independent trained observer pushed medications at my direction, and monitored the patient's level of consciousness and physiological status throughout. PROCEDURE IN DETAIL: After obtaining an informed consent, the patient was placed on left lateral decubitus position. The patient was then sedated with the above medications. A bite block was placed between her teeth. The endoscope was then passed through the oropharynx, into the esophagus, and through the stomach and pylorus up to the second and third part of the duodenum. The endoscope was then withdrawn. The 2nd and 3rd part of the duodenal were normal the duodenal bulb showed minimal duodenitis. Duodenal biopsies were obtained The pre-pyloric area antrum and body showed minimal gastritis. Gastric biopsies were obtained. On retroflexion the fundus cardia and angularis were normal. The endoscope was then withdrawn into distal esophagus Patient had a 0.5 cm sliding-type hiatal hernia with slightly irregular squamo columnar junction. GE junction biopsies were obtained. There was no fresh or old blood in the upper GI tract no evidence of ulceration The patient tolerated the procedure well without difficulty. COMPLICATIONS : None SPECIMENS: Duodenal biopsy Gastric biopsies GE junction biopsies DISPOSITION: Transfer back to the floor Stable PLAN: 1. Await for biopsy result 2. Will place pt on Protonix 40 mg year daily 3. Zofran as needed for nausea vomiting 4. Resume GI soft diet advance as tolerated 5. Outpatient follow up with me in 4-6 weeks to review results and discuss further management TRIPP CHRISTINE MD Sep 07, 2024 16:11
[2024-09-08 01:00] VITALS: BP 147/80; PULSE 84; RESP 18; TEMP 98.6; O2SAT 95
[2024-09-08 05:00] VITALS: BP 140/62; PULSE 88; RESP 18; TEMP 98.1; O2SAT 93
[2024-09-08 08:00] VITALS: PULSE 78; PULSE 86; RESP 18; O2SAT 98
[2024-09-08 08:23] VITALS: BP 149/80; PULSE 78; RESP 21; TEMP 97; O2SAT 98
[2024-09-08 10:38] LABS: Hematocrit 38.2 % (36.0-46.0); Hemoglobin 13.2 g/dL (12.2-16.2); Mean Corpuscular Hemoglobin 28.8 pg (28.0-32.0); Mean Corpuscular Volume 83.6 fL (80.0-100.0); Nucleated Red Blood Cells % 0.1 %
[2024-09-08] MEDS ORDERED: LORazepam 0.5 MG TAB PO PRN (10:45)
[2024-09-08 10:46] LABS: Chloride 104 mmol/L (98-107); Sodium 139 mmol/L (136-145)
[2024-09-08 10:47] LABS: Anion Gap 9 (5-15); Carbon Dioxide 26 mmol/L (20-31)
[2024-09-08 10:52] LABS: BUN/Creatinine Ratio 17.9 (10.0-20.0); Blood Urea Nitrogen 17 mg/dL (9-23); Calcium 8.3 mg/dL (8.7-10.4); Glucose 156 mg/dL (74-106); Potassium 3.3 mmol/L (3.5-5.1)
[2024-09-08 12:58] VITALS: BP 155/85; PULSE 82; RESP 18; TEMP 97.2; O2SAT 98
[2024-09-08] MEDS: POTASSIUM CHL 20 Meq TABLET PO ONE (14:56)
[2024-09-08] MEDS ORDERED: PANT40TA2 PO (15:10)
[2024-09-08] MEDS ORDERED: AML5T PO (15:10)
[2024-09-08 16:24] VITALS: BP 143/86; PULSE 86; RESP 17; TEMP 97; O2SAT 98
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
--- NOTE | 2024-09-08 21:17 | DVHPN2 ---
Progress Note - Dictate Date Seen: Sep 08, 2024 (Late entry Patient seen at 10:00 a.m.) Has the PT tested + for MRSA If YES, has PT been informed?: No Medical Necessity Reason Pt with a Central, PICC or Fol: Yes Subjective Patient resting comfortably No nausea vomiting or abdominal pain EGD findings reviewed with the patient Patient is aware of her diagnosis of hepatitis-C but she stated she had already been treated for hepatitis-C and it is in remission Patient is usually followed by the gastro group vital signs Vital Sign Date Time Temp Pulse Resp B/P (MAP) Pulse Ox O2 Delivery O2 Flow Rate FiO2 09/08/24 16:24 97.0 86 17 98 09/08/24 14:57 155/85 09/08/24 08:00 Room Air* 0 21 Total Intake and Output 09/07/24 09/07/24 09/08/24 15:00 23:00 07:00 Intake Total 50 ml 600 ml 800 ml Balance 50 ml 600 ml 800 ml objective General: NAD, AAOX3 Chest: lung robles clear to auscultation Heart: RRR, no murmur Abdomen:+ tenderness to palpation, +BS laboratory and microbiology Laboratory Tests 09/08/24 10:15 Test 09/08/24 10:15 Range/Units Serum Glucose 156 H 74-106 mg/dL Liver USG IMPRESSION: 1. Increased echogenicity of the liver which may be referable to hepatic steatosis or intrinsic hepatocellular disease. Nodular hepatic contour raises the possibility of cirrhosis in the appropriate clinical setting. Problems(with codes): (1) N&V (nausea and vomiting) (2) Acute abdominal pain Prognosis Plan Protonix 40 mg p.o. daily Zofran as needed for nausea and vomiting Dietary changes discussed Avoid aspirin NSAIDs smoking alcohol Patient will follow up with gastro group as an outpatient for her underlying chronic liver issues and she sees them regularly Plan discussed with: Patient TRIPP DUTTON MD Sep 08, 2024 21:17
== END 2024-09-08 17:26 | disposition home or self-care (01) ==
LOC: ER 16:03 → EDBD 16:03 → OVERFLOW 22:36 → TELE-EAST 09-06 15:22
PROVIDERS: ADMIT Internal Medicine; ATTEND Internal Medicine
PROC: 0DB68ZX Excision of Stomach, Via Natural or Artificial Opening Endoscopic, Diagnostic (ICD-10-PCS; 2024-09-07)
PROC: 0DB48ZX Excision of Esophagogastric Junction, Via Natural or Artificial Opening Endoscopic, Diagnostic (ICD-10-PCS; 2024-09-07)
PROC: 0DB98ZX Excision of Duodenum, Via Natural or Artificial Opening Endoscopic, Diagnostic (ICD-10-PCS; principal; 2024-09-07 15:55)
DX: K74.60 Unspecified cirrhosis of liver (principal); N17.0 Acute kidney failure with tubular necrosis; R65.11 Systemic inflammatory response syndrome (SIRS) of non-infectious origin with acute organ dysfunction; I21.A1 Myocardial infarction type 2; M32.9 Systemic lupus erythematosus, unspecified; E11.65 Type 2 diabetes mellitus with hyperglycemia; B19.20 Unspecified viral hepatitis C without hepatic coma; K29.90 Gastroduodenitis, unspecified, without bleeding; K29.80 Duodenitis without bleeding; K29.70 Gastritis, unspecified, without bleeding; E87.6 Hypokalemia; K44.9 Diaphragmatic hernia without obstruction or gangrene; K21.9 Gastro-esophageal reflux disease without esophagitis; I16.1 Hypertensive emergency; N28.1 Cyst of kidney, acquired; F12.10 Cannabis abuse, uncomplicated; E66.9 Obesity, unspecified; Z87.891 Personal history of nicotine dependence; Z88.0 Allergy status to penicillin; Z86.73 Personal history of transient ischemic attack (TIA), and cerebral infarction without residual deficits; Z79.4 Long term (current) use of insulin; Z68.41 Body mass index [BMI] 40.0-44.9, adult
CPT/HCPCS: 36415; 43239; 70450; 71045; 74177; 76705; 80048; 80053; 80074; 80076; 80307; 80320; 81001; 82010; 82140; 82270; 82306; 82570; 82607; 82746; 82962; 83036; 83690; 83735; 83880; 84156; 84300; 84443; 84484; 85025; 85610; 85730; 86850; 86900; 86901; 93005; 93306; 97163; G0378; J1815; J2250; J2405; J2470; J3480